=== PATIENT | male | born 1970 | race Two or more races ===

== ENCOUNTER 2024-03-08 10:50 | Emergency (ER) | payer OTHER ==
[~2024-03-08] VITALS: Ht 172.7 cm; Wt 88.6 kg
[2024-03-08 10:53] VITALS: BP 121/93; PULSE 106; RESP 18; TEMP 97.9
[2024-03-08] MEDS ORDERED: RISP-31 PO (10:55)
[2024-03-08] MEDS ORDERED: ASPI-989 PO (10:55)
[2024-03-08] MEDS: ACETAMINOPHEN 500 MG TABLET PO ONE (11:39)
[2024-03-08] MEDS ORDERED: ACET-3385 PO (12:57)
== END 2024-03-08 13:29 | disposition home or self-care (01) ==
LOC: EMS 10:50
DX: M25.512 Pain in left shoulder (principal); Z88.0 Allergy status to penicillin; Z88.6 Allergy status to analgesic agent
CPT/HCPCS: 99283